=== PATIENT | male | born 1955 | race African-American/Black ===

== ENCOUNTER 2017-03-20 13:23 | Emergency (ER) | payer MEDICARE, MEDICAID ==
[~2017-03-20] VITALS: Ht 175.3 cm; Wt 93.8 kg
[~2017-03-20 13:23] MED LIST: ALLOPURINOL 100 MG; ANUHCCR RC; CLON-527 PO; CLONAZEPAM 1 MG TABLET; DIPH-423 PO; HYDR12.5 PO; LORA10TA65 PO; METH500T PO; QUET-1 PO; QUETIAPINE FUMARATE 300 MG TAB; TRADJENTA 5 MG; TRAZ-91 PO; TRAZODONE 100 MG TABLET
[2017-03-20 13:26] VITALS: BP 164/103
== END 2017-03-20 15:17 | disposition home or self-care (01) ==
LOC: ER 13:24
DX: M79.89 Other specified soft tissue disorders (principal); E78.00 Pure hypercholesterolemia, unspecified; I10 Essential (primary) hypertension; M10.9 Gout, unspecified
CPT/HCPCS: 99281

== ENCOUNTER 2017-11-10 08:55 | Emergency (ER) | payer MEDICARE, OTHER ==
[~2017-11-10] VITALS: Ht 175.3 cm; Wt 81.8 kg
[2017-11-10] MEDS ORDERED: PROCHC RC (09:19)
[2017-11-10 09:34] VITALS: BP 145/99
== END 2017-11-10 09:36 | disposition home or self-care (01) ==
LOC: ER 08:56
DX: K64.9 Unspecified hemorrhoids (principal); K59.00 Constipation, unspecified; E78.00 Pure hypercholesterolemia, unspecified; I10 Essential (primary) hypertension; Z90.49 Acquired absence of other specified parts of digestive tract; Z98.890 Other specified postprocedural states; Z79.899 Other long term (current) drug therapy
CPT/HCPCS: 99282

== ENCOUNTER 2018-12-14 21:48 | Emergency (ER) | payer MEDICARE ==
[~2018-12-14] VITALS: Ht 175.3 cm; Wt 75.0 kg
[~2018-12-14 21:48] MED LIST changes: +HYDR28CR14 TOP; +PROCHC RC; -QUETIAPINE FUMARATE 300 MG TAB; +QUETIAPINE FUMARATE 300 MG TAB PO
[2018-12-14 22:45] LABS: EOSINOPHILS # (AUTO) 0.1 X10'3 (0-0.9); MEAN CORPUSCULAR VOLUME 91.3 FL (78-98); MEAN PLATELET VOLUME 9.2 FL (7.4-10.4); PLATELET COUNT 153 X10'3 (140-440)
[2018-12-14 22:47] LABS: BASOPHILS % (AUTO) 0.1 % (0-1); HEMATOCRIT 28.7 % (42.0-52.0); HEMOGLOBIN 9.6 g/dl (14.0-17.9); LYMPHOCYTES # (AUTO) 1.7 X10'3 (1.1-4.8); LYMPHOCYTES % (AUTO) 23.4 % (21-51); MEAN CORPUSCULAR HEMOGLOBIN 30.4 PG (27.0-31.0); MEAN CORPUSCULAR HGB CONC 33.3 g/dL (33.0-36.5); MONOCYTES # (AUTO) 0.5 X10'3 (0-0.9); MONOCYTES % (AUTO) 6.5 % (2-12); NEUTROPHILS # (AUTO) 4.9 X10'3 (1.8-7.7); RED BLOOD COUNT 3.14 X10'6 (4.70-6.10); WHITE BLOOD COUNT 7.2 X10'3 (4.5-11.0)
[2018-12-14 22:53] LABS: OCCULT BLOOD STOOL NEGATIVE (Neg)
[2018-12-14 22:57] LABS: PARTIAL THROMBOPLASTIN TIME 30 SECONDS (22-32)
[2018-12-14 22:58] LABS: ALANINE AMINOTRANSFERASE 24 U/L (12-78); ALBUMIN 3.1 G/DL (3.4-5.0); ALKALINE PHOSPHATASE 68 IU/L (46-116); ANION GAP 7 (8-16); ASPARTATE AMINO TRANSFERASE 20 U/L (10-37); BILIRUBIN,TOTAL 0.5 MG/DL (0.1-1.0); BLOOD UREA NITROGEN 16 MG/DL (7-18); BUN/CREATININE RATIO 9.3 (5.4-32.0); CALCIUM 8.5 MG/DL (8.5-10.1); CHLORIDE 110 MMOL/L (99-107); CREATININE 1.72 MG/DL (0.60-1.10); GLUCOSE 90 MG/DL (70-104); POTASSIUM 3.5 MMOL/L (3.5-5.1); SODIUM 145 MMOL/L (135-145); TOTAL PROTEIN 6.3 G/DL (6.4-8.2); eGFR 49 ML/MIN
[2018-12-14 23:37] VITALS: BP 170/96
== END 2018-12-14 23:39 | disposition home or self-care (01) ==
LOC: ER 21:49
DX: K92.1 Melena (principal); E78.00 Pure hypercholesterolemia, unspecified; I10 Essential (primary) hypertension; M10.9 Gout, unspecified; Z98.890 Other specified postprocedural states; Z90.49 Acquired absence of other specified parts of digestive tract; Z79.899 Other long term (current) drug therapy
CPT/HCPCS: 36415; 80053; 82272; 85025; 85610; 85730; 86885; 86900; 86901; 99283

== ENCOUNTER 2018-12-23 21:41 | Inpatient (IN) | payer MEDICARE ==
[~2018-12-23] VITALS: Ht 175.3 cm; Wt 75.0 kg
--- NOTE | 2018-12-23 22:31 | NUR ---
DR VU AT BEDSIDE WITH PT
[2018-12-23 22:43] LABS: CLARITY,URINE CLEAR (Clear); COLOR,URINE YELLOW (Yellow); GLUCOSE, URINE NEGATIVE (Neg); KETONES,URINE NEGATIVE (Neg); LEUKOCYTE ESTERASE ,URINE TRACE (Neg); NITRITES, URINE NEGATIVE (Neg); OCCULT BLOOD,URINE NEGATIVE (Neg); PROTEIN,URINE NEGATIVE (Neg); UROBILINOGEN,URINE 0.2 E.U/dL (0.2-1.0)
[2018-12-23 22:50] LABS: UA COLLECTION TYPE CLN CATCH MIDSTREAM
[2018-12-23 22:51] LABS: BACTERIA,URINE NONE SEEN /HPF (Neg); RBC,URINE NONE SEEN /HPF (0-2); SQUAMOUS EPITHELIAL CELL,UR FEW /LPF (FEW); WBC,URINE 0-4 /HPF (0-4)
[2018-12-23 23:00] LABS: BASOPHILS % (AUTO) 0.3 % (0-1); EOSINOPHILS # (AUTO) 0.1 X10'3 (0-0.9); HEMATOCRIT 26.2 % (42.0-52.0); HEMOGLOBIN 8.7 g/dl (14.0-17.9); LYMPHOCYTES # (AUTO) 1.6 X10'3 (1.1-4.8); MEAN CORPUSCULAR HEMOGLOBIN 30.7 PG (27.0-31.0); MEAN CORPUSCULAR HGB CONC 33.3 g/dL (33.0-36.5); MEAN CORPUSCULAR VOLUME 92.4 FL (78-98); MEAN PLATELET VOLUME 9.7 FL (7.4-10.4); MONOCYTES # (AUTO) 0.3 X10'3 (0-0.9); MONOCYTES % (AUTO) 5.4 % (2-12); NEUTROPHILS # (AUTO) 3.9 X10'3 (1.8-7.7); NEUTROPHILS % (AUTO) 65.3 % (42-75); PLATELET COUNT 128 X10'3 (140-440); RED BLOOD COUNT 2.84 X10'6 (4.70-6.10); RED CELL DISTRIBUTION WIDTH 17.2 % (11.5-14.5)
[2018-12-23 23:18] LABS: CHLORIDE 108 MMOL/L (99-107); POTASSIUM 3.3 MMOL/L (3.5-5.1); SODIUM 144 MMOL/L (135-145); TROPONIN I 0.22 NG/ML (0.0-0.05)
[2018-12-23 23:49] LABS: ALANINE AMINOTRANSFERASE 38 U/L (12-78); ALKALINE PHOSPHATASE 63 IU/L (46-116); ANION GAP 7 (8-16); ASPARTATE AMINO TRANSFERASE 27 U/L (10-37); BILIRUBIN,TOTAL 0.4 MG/DL (0.1-1.0); BLOOD UREA NITROGEN 16 MG/DL (7-18); CALCIUM 8.1 MG/DL (8.5-10.1); CREATININE 1.77 MG/DL (0.60-1.10); GLUCOSE 95 MG/DL (70-104); TOTAL CARBON DIOXIDE 28.6 MMOL/L (24-32); TOTAL PROTEIN 5.9 G/DL (6.4-8.2); eGFR 47 ML/MIN
[2018-12-23] MEDS ORDERED: aspirin 81mg tab.chew PO ONE (23:55)
[2018-12-24] MEDS ORDERED: ATOR10TA70 PO (02:10)
[2018-12-24] MEDS ORDERED: VARD20TA31 PO (02:10)
[2018-12-24] MEDS ORDERED: normal saline 1000ml 1,000 ML IV SCH (02:36)
[2018-12-24] MEDS ORDERED: magnesium hydroxide 30ml (MOM) UD suspension PO PRN (02:40)
[2018-12-24] MEDS ORDERED: ondansetron/PF 4mg/2ml inj IV PRN (02:40)
[2018-12-24] MEDS ORDERED: metoprolol tartrate 50mg tablet PO ONE (02:40)
[2018-12-24] MEDS ORDERED: mag hydrox/Alum hydrox/simeth 30ml oral suspension PO PRN (02:40)
[2018-12-24] MEDS ORDERED: acetaminophen 325mg tablet PO PRN (02:40)
[2018-12-24] MEDS ORDERED: dextrose ORAL solution 15 GM/59 ML bottle PO PRN ×2 (02:45)
[2018-12-24] MEDS ORDERED: dextrose 50%-water 50ml dispensing syringe IV PRN ×2 (02:45)
[2018-12-24] MEDS ORDERED: glucagon, human recombinant 1mg kit SUBCUT PRN (02:45)
[2018-12-24] MEDS ORDERED: insulin Lispro (HumaLOG) vial - multi-dose SQ SCH (02:45)
[2018-12-24] MEDS ORDERED: MESSAGE TO PHARMACY PO ONE (02:45)
--- NOTE | 2018-12-24 07:55 | NUR ---
REQUESTED RE DRAW OF TROP. SPOKE TO SUSAN MATSON WE WILL KEEP PT IN ER UNTIL REDRAW TROP RESULTES. CALLED PCU SPOKE WITH BILLY DAVIS AND INFORMED HER WE WILL NOTIFY HOSPITALIST TO INQUIRE IF PT STILL MEETS ADMIT CRITERIA.
[2018-12-24] MEDS ORDERED: metoprolol tartrate 50mg tablet PO SCH (08:00)
[2018-12-24] MEDS ORDERED: atorvastatin 10mg tablet PO SCH (08:00)
[2018-12-24] MEDS ORDERED: heparin, porcine 5000 units/ml vial SQ SCH (08:00)
[2018-12-24] MEDS ORDERED: aspirin 325mg tablet PO SCH (08:30)
--- NOTE | 2018-12-24 09:12 | NUR ---
multiple pages to Dr Yousif RE: if pt needs admission. will attempt again
--- NOTE | 2018-12-24 09:38 | NUR ---
dr kim called back he will look over the cart and put in dc orders if apporp
[2018-12-24 10:25] VITALS: BP 132/82
[2018-12-24] MEDS ORDERED: LORA10TA7 PO (11:36)
[2018-12-24] MEDS ORDERED: TRAZ-251 PO (11:37)
[2018-12-24] MEDS ORDERED: FURO-150 PO (11:37)
[2018-12-24] MEDS ORDERED: ASPI81TA52 PO (11:37)
[2018-12-24] MEDS ORDERED: traZODone 50mg tablet PO SCH (21:00)
[2018-12-24] MEDS ORDERED: clonazePAM 1mg tablet PO SCH (21:00)
== END 2018-12-25 06:12 | disposition home or self-care (01) | DRG 280 ==
LOC: ER 21:44 → ED HOLD 12-24 02:39 → CMPBEDREQ 12-25 00:35
PROVIDERS: ADMIT Internal Medicine; ATTEND Hospitalist
DX: I13.0 Hypertensive heart and chronic kidney disease with heart failure and stage 1 through stage 4 chronic kidney disease, or unspecified chronic kidney disease (principal); I21.A1 Myocardial infarction type 2; I50.33 Acute on chronic diastolic (congestive) heart failure; E87.6 Hypokalemia; R42 Dizziness and giddiness; D64.9 Anemia, unspecified; E11.22 Type 2 diabetes mellitus with diabetic chronic kidney disease; E78.00 Pure hypercholesterolemia, unspecified; F32.9 Major depressive disorder, single episode, unspecified; R79.89 Other specified abnormal findings of blood chemistry; N18.9 Chronic kidney disease, unspecified; F20.9 Schizophrenia, unspecified; F41.9 Anxiety disorder, unspecified; M10.9 Gout, unspecified; N18.3 Chronic kidney disease, stage 3 (moderate); Z85.72 Personal history of non-Hodgkin lymphomas; Z90.49 Acquired absence of other specified parts of digestive tract
CPT/HCPCS: 36415; 71045; 80053; 81001; 82948; 83036; 83880; 84484; 85025; 85610; 87088; 93005; 93306; 99285; G0378; J1815

== ENCOUNTER 2019-02-28 14:11 | Emergency (ER) | payer MEDICARE, MEDICAID ==
[~2019-02-28] VITALS: Ht 175.3 cm; Wt 75.0 kg
[~2019-02-28 14:11] MED LIST changes: -ALLOPURINOL 100 MG; +ASPI81TA52 PO; +ATOR10TA70 PO; -CLON-527 PO; -CLONAZEPAM 1 MG TABLET; -DIPH-423 PO; +FURO-150 PO; -HYDR12.5 PO; -LORA10TA65 PO; +LORA10TA7 PO; -QUET-1 PO; -QUETIAPINE FUMARATE 300 MG TAB PO; -TRADJENTA 5 MG; +TRAZ-251 PO; -TRAZ-91 PO; -TRAZODONE 100 MG TABLET; +VARD20TA31 PO
[2019-02-28 14:32] VITALS: BP 138/73
[2019-02-28] MEDS ORDERED: ACET-812 PO (15:42)
== END 2019-02-28 15:54 | disposition home or self-care (01) ==
LOC: ER 14:13
DX: J02.8 Acute pharyngitis due to other specified organisms (principal); B97.89 Other viral agents as the cause of diseases classified elsewhere; E78.00 Pure hypercholesterolemia, unspecified; I10 Essential (primary) hypertension; E11.9 Type 2 diabetes mellitus without complications; F41.9 Anxiety disorder, unspecified; F20.9 Schizophrenia, unspecified; F32.9 Major depressive disorder, single episode, unspecified; Z90.49 Acquired absence of other specified parts of digestive tract; Z98.890 Other specified postprocedural states; Z59.0 Homelessness; Z79.82 Long term (current) use of aspirin; Z79.899 Other long term (current) drug therapy
CPT/HCPCS: 99282; 99283

== ENCOUNTER 2019-03-16 16:11 | Emergency (ER) | payer MEDICARE, MEDICAID ==
[~2019-03-16] VITALS: Ht 175.3 cm; Wt 75.0 kg
[2019-03-16 16:27] VITALS: BP 142/99
[2019-03-16] MEDS ORDERED: ACET-2006 PO (18:00)
== END 2019-03-16 18:06 | disposition home or self-care (01) ==
LOC: ER 16:11
DX: R20.0 Anesthesia of skin (principal); R05 Cough; J02.9 Acute pharyngitis, unspecified; E78.00 Pure hypercholesterolemia, unspecified; I10 Essential (primary) hypertension; E11.9 Type 2 diabetes mellitus without complications; F41.9 Anxiety disorder, unspecified; F32.9 Major depressive disorder, single episode, unspecified; F20.9 Schizophrenia, unspecified; Z90.49 Acquired absence of other specified parts of digestive tract; Z98.890 Other specified postprocedural states; Z59.0 Homelessness; Z79.899 Other long term (current) drug therapy
CPT/HCPCS: 99282

== ENCOUNTER 2020-01-27 08:07 | Emergency (ER) | payer MEDICARE, MEDICAID ==
[~2020-01-27] VITALS: Ht 175.3 cm; Wt 75.0 kg
[~2020-01-27 08:07] MED LIST changes: +ACET-2006 PO
[2020-01-27 09:50] VITALS: BP 151/52
== END 2020-01-27 09:51 | disposition home or self-care (01) ==
LOC: ER 08:08
DX: I10 Essential (primary) hypertension (principal); E78.00 Pure hypercholesterolemia, unspecified; E11.9 Type 2 diabetes mellitus without complications; M10.9 Gout, unspecified; F41.9 Anxiety disorder, unspecified; F32.9 Major depressive disorder, single episode, unspecified; F20.9 Schizophrenia, unspecified; Z90.89 Acquired absence of other organs; Z90.49 Acquired absence of other specified parts of digestive tract; Z98.890 Other specified postprocedural states; Z59.0 Homelessness; Z79.82 Long term (current) use of aspirin; Z79.899 Other long term (current) drug therapy
CPT/HCPCS: 99281

== ENCOUNTER 2020-02-14 23:58 | Emergency (ER) | payer MEDICARE, MEDICAID ==
[~2020-02-14] VITALS: Ht 175.3 cm; Wt 70.6 kg
--- NOTE | 2020-02-15 00:24 | NUR ---
Pt was d/c home from [facility] today and was told to f/u with a long term care administrator. Pt was sent home on a bus, and came immediately to the ER to f/u.
[2020-02-15 01:55] VITALS: BP 171/98
== END 2020-02-15 01:58 | disposition home or self-care (01) ==
LOC: ER 23:59
DX: I34.0 Nonrheumatic mitral (valve) insufficiency (principal); E78.00 Pure hypercholesterolemia, unspecified; I10 Essential (primary) hypertension; E11.9 Type 2 diabetes mellitus without complications; F31.9 Bipolar disorder, unspecified; F32.9 Major depressive disorder, single episode, unspecified; F20.9 Schizophrenia, unspecified; Z90.49 Acquired absence of other specified parts of digestive tract; Z59.0 Homelessness; Z79.899 Other long term (current) drug therapy
CPT/HCPCS: 99284

== ENCOUNTER 2020-04-04 01:37 | Emergency (ER) | payer MEDICARE, MEDICAID ==
[~2020-04-04] VITALS: Ht 175.3 cm; Wt 80.2 kg
[2020-04-04] MEDS ORDERED: AMLO5TAB4 PO (03:47)
[2020-04-04] MEDS: amLODIPine 5mg tablet PO ONE (03:53)
[2020-04-04 03:54] VITALS: BP 190/98
== END 2020-04-04 03:55 | disposition home or self-care (01) ==
LOC: ER 01:37
DX: I10 Essential (primary) hypertension (principal); E78.00 Pure hypercholesterolemia, unspecified; E11.9 Type 2 diabetes mellitus without complications; F41.9 Anxiety disorder, unspecified; F32.9 Major depressive disorder, single episode, unspecified; F20.9 Schizophrenia, unspecified; Z90.49 Acquired absence of other specified parts of digestive tract; Z98.890 Other specified postprocedural states; Z59.0 Homelessness; Z79.82 Long term (current) use of aspirin; Z79.899 Other long term (current) drug therapy
CPT/HCPCS: 93005; 99283

== ENCOUNTER 2020-05-31 10:13 | Emergency (ER) | payer MEDICARE, MEDICAID ==
[~2020-05-31] VITALS: Ht 175.3 cm; Wt 83.9 kg
[~2020-05-31 10:13] MED LIST changes: +AMLO5TAB4 PO
[2020-05-31 10:28] VITALS: BP 184/104
== END 2020-05-31 11:12 | disposition home or self-care (01) ==
LOC: ER 10:14
DX: S90.821A Blister (nonthermal), right foot, initial encounter (principal); E78.00 Pure hypercholesterolemia, unspecified; I10 Essential (primary) hypertension; E11.9 Type 2 diabetes mellitus without complications; F41.9 Anxiety disorder, unspecified; F32.9 Major depressive disorder, single episode, unspecified; F20.9 Schizophrenia, unspecified; M10.9 Gout, unspecified; Z90.49 Acquired absence of other specified parts of digestive tract; Z98.890 Other specified postprocedural states; Z59.0 Homelessness; Z79.82 Long term (current) use of aspirin; Z79.899 Other long term (current) drug therapy; X58.XXXA Exposure to other specified factors, initial encounter; Y93.89 Activity, other specified; Y92.89 Other specified places as the place of occurrence of the external cause; Y99.8 Other external cause status
CPT/HCPCS: 99281

== ENCOUNTER 2020-08-23 14:58 | Emergency (ER) | payer MEDICARE, MEDICAID ==
[~2020-08-23] VITALS: Ht 175.3 cm; Wt 81.8 kg
[~2020-08-23 14:58] MED LIST changes: -ACET-2006 PO; +ALLO100T25 PO; -AMLO5TAB4 PO; -ANUHCCR RC; -ASPI81TA52 PO; +CLON-568 PO; -FURO-150 PO; -HYDR28CR14 TOP; +LISI2.5T2 PO; +LOP25T PO; -LORA10TA7 PO; -METH500T PO; +NIFE90TA44 PO; -PROCHC RC; +QUET300T19 PO; -TRAZ-251 PO; +TRAZ-256 PO; -VARD20TA31 PO
[2020-08-23 15:29] VITALS: BP 113/71
[2020-08-23] MEDS ORDERED: CEPH-585 PO (15:34)
== END 2020-08-23 15:48 | disposition home or self-care (01) ==
LOC: ER 14:59
DX: L03.113 Cellulitis of right upper limb (principal); E86.0 Dehydration; M79.89 Other specified soft tissue disorders; E78.00 Pure hypercholesterolemia, unspecified; I10 Essential (primary) hypertension; E11.9 Type 2 diabetes mellitus without complications; M10.9 Gout, unspecified; F41.9 Anxiety disorder, unspecified; F32.9 Major depressive disorder, single episode, unspecified; F20.9 Schizophrenia, unspecified; Z90.89 Acquired absence of other organs; Z90.49 Acquired absence of other specified parts of digestive tract; Z98.890 Other specified postprocedural states; Z59.0 Homelessness; Z79.2 Long term (current) use of antibiotics; Z79.899 Other long term (current) drug therapy
CPT/HCPCS: 99283

== ENCOUNTER 2020-08-30 20:31 | Emergency (ER) | payer MEDICARE, MEDICAID ==
[~2020-08-30] VITALS: Ht 175.3 cm; Wt 82.7 kg
[~2020-08-30 20:31] MED LIST changes: +CEPH-585 PO
[2020-08-30] MEDS ORDERED: CEPH250T PO (22:05)
--- NOTE | 2020-08-30 22:18 | NUR ---
Zulma callaway in [facility] - 08/30/20 at 2223 by JONATHAN pt seen and discharge by provider.
[2020-08-30 22:21] VITALS: BP 176/116
== END 2020-08-30 22:48 | disposition home or self-care (01) ==
LOC: ER 20:32
DX: R60.0 Localized edema (principal); M79.601 Pain in right arm; E78.00 Pure hypercholesterolemia, unspecified; I10 Essential (primary) hypertension; E11.9 Type 2 diabetes mellitus without complications; F41.9 Anxiety disorder, unspecified; F32.9 Major depressive disorder, single episode, unspecified; F20.9 Schizophrenia, unspecified; I51.9 Heart disease, unspecified; Z59.0 Homelessness
CPT/HCPCS: 99283

== ENCOUNTER 2020-09-16 18:20 | Emergency (ER) | payer MEDICARE, MEDICAID ==
[~2020-09-16] VITALS: Ht 175.3 cm; Wt 79.5 kg
[2020-09-16] MEDS ORDERED: AMOX500C2 PO (19:18)
[2020-09-16 19:39] VITALS: BP 151/105
== END 2020-09-16 19:40 | disposition home or self-care (01) ==
LOC: ER 18:21
DX: J02.9 Acute pharyngitis, unspecified (principal); E78.00 Pure hypercholesterolemia, unspecified; I10 Essential (primary) hypertension; E11.9 Type 2 diabetes mellitus without complications; M81.0 Age-related osteoporosis without current pathological fracture; Z90.49 Acquired absence of other specified parts of digestive tract; Z98.890 Other specified postprocedural states; Z79.2 Long term (current) use of antibiotics; Z79.899 Other long term (current) drug therapy
CPT/HCPCS: 99283

== ENCOUNTER 2021-03-10 11:33 | Emergency (ER) | payer BC, MEDICAID ==
[~2021-03-10 11:33] MED LIST changes: +LISI2.5T14 PO; -LISI2.5T2 PO; -QUET300T19 PO; +QUET300T20 PO
== END 2021-03-10 15:13 | disposition left against medical advice (07) ==
LOC: ER 11:33
DX: Z53.21 Procedure and treatment not carried out due to patient leaving prior to being seen by health care provider (principal)

== ENCOUNTER 2021-03-10 19:27 | Emergency (ER) | payer BC, MEDICAID ==
--- NOTE | 2021-03-10 20:00 | NUR ---
not in lobby
--- NOTE | 2021-03-10 20:13 | NUR ---
not in lobby
== END 2021-03-10 21:35 | disposition left against medical advice (07) ==
LOC: ER 19:28
DX: Z53.21 Procedure and treatment not carried out due to patient leaving prior to being seen by health care provider (principal)

== ENCOUNTER 2022-11-13 13:08 | Inpatient (IN) | payer BC, MEDICAID ==
[~2022-11-13] VITALS: Ht 175.3 cm; Wt 84.1 kg
[~2022-11-13 13:08] MED LIST changes: -CEPH-585 PO; -NIFE90TA44 PO; +NIFE90TA70 PO
[2022-11-13 13:58] LABS: BASOPHILS % (AUTO) 0.4 % (0-1); EOSINOPHILS # (AUTO) 0.1 X10'3 (0-0.9); EOSINOPHILS % (AUTO) 2.1 % (0-6); HEMATOCRIT 34.2 % (42.0-52.0); HEMOGLOBIN 11.2 g/dl (14.0-17.9); LYMPHOCYTES # (AUTO) 1.4 X10'3 (1.1-4.8); LYMPHOCYTES % (AUTO) 22.1 % (21-51); MEAN CORPUSCULAR HEMOGLOBIN 29.9 PG (27.0-31.0); MEAN CORPUSCULAR HGB CONC 32.8 g/dL (33.0-36.5); MEAN CORPUSCULAR VOLUME 91.3 FL (78-98); MEAN PLATELET VOLUME 8.5 FL (7.4-10.4); MONOCYTES # (AUTO) 0.5 X10'3 (0-0.9); MONOCYTES % (AUTO) 8.5 % (2-12); NEUTROPHILS # (AUTO) 4.3 X10'3 (1.8-7.7); NEUTROPHILS % (AUTO) 66.9 % (42-75); PLATELET COUNT 233 X10'3 (140-440); RED BLOOD COUNT 3.75 X10'6 (4.70-6.10); RED CELL DISTRIBUTION WIDTH 16.1 % (11.5-14.5); WHITE BLOOD COUNT 6.4 X10'3 (4.5-11.0)
[2022-11-13 14:11] LABS: ALANINE AMINOTRANSFERASE 20 U/L (12-78); ALBUMIN 3.1 G/DL (3.4-5.0); ALBUMIN/GLOBULIN RATIO 0.9 (1.1-1.5); ALKALINE PHOSPHATASE 74 IU/L (46-116); ANION GAP 8 (8-16); ASPARTATE AMINO TRANSFERASE 24 U/L (10-37); BILIRUBIN,TOTAL 0.7 MG/DL (0.1-1.0); BLOOD UREA NITROGEN 29 MG/DL (7-18); BUN/CREATININE RATIO 9.7 (10.0-20.0); CALCIUM 8.6 MG/DL (8.5-10.1); CHLORIDE 102 MMOL/L (99-107); GLUCOSE 96 MG/DL (70-104); SODIUM 143 MMOL/L (135-145); TOTAL CARBON DIOXIDE 32.8 MMOL/L (24-32); TOTAL PROTEIN 6.6 G/DL (6.4-8.2); eCRCL 24 ML/MIN; eGFR 25 ML/MIN
[2022-11-13 14:19] LABS: PRO BRAIN NATRIURETIC PEPTIDE 314 PG/ML (0-125)
[2022-11-13] MEDS ORDERED: potassium Cl 20 mEq SR tablet PO ONE (14:45)
[2022-11-13] MEDS ORDERED: normal saline 1000ml 1,000 ML IV ONE (14:50)
[2022-11-13 15:36] LABS: CREATINE KINASE 277 U/L (39-308); MAGNESIUM 1.2 MG/DL (1.5-2.4)
[2022-11-13] MEDS ORDERED: magnesium 2GM in 50ml NS 50 ML IV ONE (16:15)
[2022-11-13] MEDS ORDERED: NIFE90TA70 PO (16:27)
[2022-11-13] MEDS ORDERED: TRAZ-251 PO (16:27)
[2022-11-13] MEDS ORDERED: DIPH25TA62 PO (16:29)
[2022-11-13] MEDS ORDERED: ATOR10TA70 PO (16:29)
[2022-11-13] MEDS ORDERED: ALLO100T PO (16:29)
[2022-11-13 16:52] LABS: ALBUMIN 3.2 G/DL (3.4-5.0); ANION GAP 8 (8-16); BLOOD UREA NITROGEN 29 MG/DL (7-18); BUN/CREATININE RATIO 9.8 (10.0-20.0); CALCIUM 8.6 MG/DL (8.5-10.1); CHLORIDE 103 MMOL/L (99-107); CREATININE 2.96 MG/DL (0.60-1.10); GLUCOSE 126 MG/DL (70-104); SODIUM 143 MMOL/L (135-145); THYROID STIMULATING HORMONE 1.68 ulU/ml (0.34-4.50); TOTAL CARBON DIOXIDE 32.4 MMOL/L (24-32); eCRCL 24 ML/MIN; eGFR 26 ML/MIN
[2022-11-13] MEDS ORDERED: magnesium 4gm in 100ml NS 100 ML IV PRN (16:55)
[2022-11-13] MEDS ORDERED: potassium Cl 40MEQ/1/2NS 520ml 520 ML IV PRN (16:55)
[2022-11-13] MEDS ORDERED: ondansetron/PF 4mg/2ml inj IV PRN (16:55)
[2022-11-13] MEDS ORDERED: magnesium 2GM in 50ml NS 50 ML IV PRN (16:55)
[2022-11-13] MEDS ORDERED: potassium Cl 20 mEq SR tablet PO PRN (16:55)
[2022-11-13] MEDS ORDERED: acetaminophen 325mg tablet PO PRN ×2 (16:55)
[2022-11-13] MEDS ORDERED: amLODIPine 5mg tablet PO ONE (17:15)
[2022-11-13] MEDS ORDERED: hyDRALAzine 10mg tablet PO PRN (17:15)
[2022-11-13] MEDS: normal saline 1000ml 1,000 ML IV SCH ×2 (17:20→23:10)
[2022-11-13] MEDS: potassium Cl 20 mEq SR tablet PO PRN ×2 (17:20→23:10)
[2022-11-13 19:07] LABS: BILIRUBIN,URINE NEGATIVE (Neg); CLARITY,URINE CLEAR (Clear); COLOR,URINE YELLOW (Yellow); GLUCOSE, URINE 250 mg/dl (Neg); KETONES,URINE NEGATIVE (Neg); LEUKOCYTE ESTERASE ,URINE NEGATIVE (Neg); NITRITES, URINE NEGATIVE (Neg); OCCULT BLOOD,URINE TRACE-INTACT (Neg); PROTEIN,URINE NEGATIVE (Neg); UROBILINOGEN,URINE 0.2 E.U/dL (0.2-1.0)
[2022-11-13 19:13] LABS: UA COLLECTION TYPE CLN CATCH MIDSTREAM
[2022-11-13 19:16] LABS: SQUAMOUS EPITHELIAL CELL,UR NONE SEEN /LPF (FEW)
[2022-11-13 19:17] LABS: BACTERIA,URINE FEW /HPF (Neg); RBC,URINE 0-2 /HPF (0-2); WBC,URINE NONE SEEN /HPF (0-4)
[2022-11-13] MEDS: enoxaparin 40mg/0.4ml syringe SQ SCH (20:12)
[2022-11-13] MEDS ORDERED: temazepam 15mg capsule PO PRN (21:00)
[2022-11-13 22:00] VITALS: BP 145/87; PULSE 88; RESP 20; RESP 21; TEMP 98.1; O2SAT 90; O2SAT 92
--- NOTE | 2022-11-13 22:20 | NUR ---
Patient in room ORTHO 4022. I have received report from MIRANDA York and had the opportunity to ask questions and assume patient care.
[2022-11-14] VITALS (7 sets, daily range): BP systolic 108–161; BP diastolic 66–91; PULSE 73–81; RESP 16–18; TEMP 97.5–98.2; O2SAT 94–100
--- NOTE | 2022-11-14 06:28 | NUR ---
Problems reprioritized. Patient report given, questions answered & plan of care reviewed with MIRANDA Abrams.
--- NOTE | 2022-11-14 06:29 | NUR ---
Patient in room ORTHO 4022. I have received report from Elma and had the opportunity to ask questions and assume patient care.
[2022-11-14 07:19] LABS: HEMATOCRIT 31.5 % (42.0-52.0); HEMOGLOBIN 10.5 g/dl (14.0-17.9); MEAN CORPUSCULAR HEMOGLOBIN 30.6 PG (27.0-31.0); MEAN CORPUSCULAR HGB CONC 33.4 g/dL (33.0-36.5); MEAN CORPUSCULAR VOLUME 91.4 FL (78-98); PLATELET COUNT 202 X10'3 (140-440); RED BLOOD COUNT 3.45 X10'6 (4.70-6.10); WHITE BLOOD COUNT 6.5 X10'3 (4.5-11.0)
[2022-11-14 07:20] LABS: BASOPHILS % (AUTO) 0.2 % (0-1); EOSINOPHILS # (AUTO) 0.2 X10'3 (0-0.9); EOSINOPHILS % (AUTO) 3.1 % (0-6); LYMPHOCYTES # (AUTO) 1.3 X10'3 (1.1-4.8); LYMPHOCYTES % (AUTO) 20.7 % (21-51); MEAN PLATELET VOLUME 9.1 FL (7.4-10.4); MONOCYTES # (AUTO) 0.5 X10'3 (0-0.9); MONOCYTES % (AUTO) 8.2 % (2-12); NEUTROPHILS # (AUTO) 4.4 X10'3 (1.8-7.7); NEUTROPHILS % (AUTO) 67.8 % (42-75)
[2022-11-14] MEDS: normal saline 1000ml 1,000 ML IV SCH ×3 (07:41→23:48)
[2022-11-14 07:56] LABS: ALANINE AMINOTRANSFERASE 20 U/L (12-78); ALBUMIN 2.9 G/DL (3.4-5.0); ALBUMIN/GLOBULIN RATIO 0.9 (1.1-1.5); ALKALINE PHOSPHATASE 67 IU/L (46-116); ANION GAP 8 (8-16); ASPARTATE AMINO TRANSFERASE 20 U/L (10-37); BILIRUBIN,TOTAL 0.5 MG/DL (0.1-1.0); BLOOD UREA NITROGEN 28 MG/DL (7-18); BUN/CREATININE RATIO 12.4 (10.0-20.0); CALCIUM 8.2 MG/DL (8.5-10.1); CHLORIDE 105 MMOL/L (99-107); CHOL/HDL RATIO 2.9 (0.00-4.99); CHOLESTEROL 157 MG/DL (0-200); CREATININE 2.26 MG/DL (0.60-1.10); GLUCOSE 118 MG/DL (70-104); HDL CHOLESTEROL 55 MG/DL (35-60); LDL CHOLESTEROL 74 MG/DL (50-100); POTASSIUM 3.3 MMOL/L (3.5-5.1); SODIUM 143 MMOL/L (135-145); TOTAL CARBON DIOXIDE 29.8 MMOL/L (24-32); TOTAL PROTEIN 6.3 G/DL (6.4-8.2); TRIGLYCERIDES 102 MG/DL (20-135); eCRCL 31 ML/MIN; eGFR 35 ML/MIN
[2022-11-14] MEDS: NIFEdipine XL 30mg tablet PO SCH (07:57)
[2022-11-14] MEDS: atorvastatin 10mg tablet PO SCH (07:58)
[2022-11-14] MEDS: potassium Cl 20 mEq SR tablet PO PRN ×3 (08:38→19:15)
[2022-11-14 08:50] LABS: HEMOGLOBIN A1C 6.1 % (4.5-6.2)
[2022-11-14 11:13] LABS: MAGNESIUM 1.4 MG/DL (1.5-2.4)
[2022-11-14] MEDS: magnesium Cl slow-release 64mg tablet PO PRN (14:14)
--- NOTE | 2022-11-14 18:04 | NUR ---
Problems reprioritized. Patient report given, questions answered & plan of care reviewed with Elma.
--- NOTE | 2022-11-14 18:20 | NUR ---
Patient in room ORTHO 4022. I have received report from MIRANDA Abrams and had the opportunity to ask questions and assume patient care.
[2022-11-14] MEDS: enoxaparin 40mg/0.4ml syringe SQ SCH (19:18)
[2022-11-15] MEDS: magnesium Cl slow-release 64mg tablet PO PRN (03:44)
[2022-11-15] MEDS: normal saline 1000ml 1,000 ML IV SCH ×2 (05:40→06:45)
[2022-11-15 05:51] LABS: BASOPHILS % (AUTO) 0.5 % (0-1); EOSINOPHILS # (AUTO) 0.2 X10'3 (0-0.9); EOSINOPHILS % (AUTO) 3.3 % (0-6); HEMATOCRIT 32.4 % (42.0-52.0); HEMOGLOBIN 10.7 g/dl (14.0-17.9); LYMPHOCYTES # (AUTO) 1.8 X10'3 (1.1-4.8); LYMPHOCYTES % (AUTO) 26.1 % (21-51); MEAN CORPUSCULAR HEMOGLOBIN 30.2 PG (27.0-31.0); MEAN CORPUSCULAR HGB CONC 32.9 g/dL (33.0-36.5); MEAN CORPUSCULAR VOLUME 91.7 FL (78-98); MEAN PLATELET VOLUME 9.4 FL (7.4-10.4); MONOCYTES # (AUTO) 0.6 X10'3 (0-0.9); MONOCYTES % (AUTO) 8.7 % (2-12); NEUTROPHILS # (AUTO) 4.2 X10'3 (1.8-7.7); NEUTROPHILS % (AUTO) 61.4 % (42-75); PLATELET COUNT 203 X10'3 (140-440); RED BLOOD COUNT 3.53 X10'6 (4.70-6.10); RED CELL DISTRIBUTION WIDTH 16.2 % (11.5-14.5); WHITE BLOOD COUNT 6.9 X10'3 (4.5-11.0)
[2022-11-15 06:28] LABS: ALANINE AMINOTRANSFERASE 23 U/L (12-78); ALBUMIN 2.8 G/DL (3.4-5.0); ALBUMIN/GLOBULIN RATIO 0.8 (1.1-1.5); ALKALINE PHOSPHATASE 62 IU/L (46-116); ANION GAP 4 (8-16); ASPARTATE AMINO TRANSFERASE 23 U/L (10-37); BILIRUBIN,TOTAL 0.4 MG/DL (0.1-1.0); BLOOD UREA NITROGEN 27 MG/DL (7-18); BUN/CREATININE RATIO 13.9 (10.0-20.0); CALCIUM 8.2 MG/DL (8.5-10.1); CHLORIDE 108 MMOL/L (99-107); CREATININE 1.94 MG/DL (0.60-1.10); GLUCOSE 92 MG/DL (70-104); SODIUM 143 MMOL/L (135-145); TOTAL CARBON DIOXIDE 31.1 MMOL/L (24-32); TOTAL PROTEIN 6.1 G/DL (6.4-8.2); eCRCL 36 ML/MIN; eGFR 42 ML/MIN
--- NOTE | 2022-11-15 06:30 | NUR ---
Problems reprioritized. Patient report given, questions answered & plan of care reviewed with MIRANDA Abrams.
[2022-11-15 07:02] VITALS: BP 154/92; PULSE 64; RESP 16; TEMP 98.5; O2SAT 95
[2022-11-15] MEDS: atorvastatin 10mg tablet PO SCH (07:31)
[2022-11-15] MEDS: NIFEdipine XL 30mg tablet PO SCH (07:31)
[2022-11-15 11:00] VITALS: BP 86/52; PULSE 81; RESP 17; TEMP 97.4; O2SAT 100
[2022-11-15] MEDS ORDERED: NIFE30TA2 PO (14:28)
--- NOTE | 2022-11-15 16:07 | NUR ---
Pt discharged via [facility] on . Pharmacy called to let them know he is on his way. Home meds given back from our pharmacy to patient. IV taken out. All belongings taken from room. [facility]. no tele.
== END 2022-11-15 15:57 | disposition home or self-care (01) | DRG 641 ==
LOC: ER 13:08 → ED HOLD 17:00 → EDBEDREQ 21:59 → ORTHO 4S 22:20
PROVIDERS: ADMIT Internal Medicine; ATTEND Internal Medicine
DX: E86.0 Dehydration (principal); N17.9 Acute kidney failure, unspecified; I95.1 Orthostatic hypotension; E11.22 Type 2 diabetes mellitus with diabetic chronic kidney disease; E78.00 Pure hypercholesterolemia, unspecified; E87.6 Hypokalemia; D64.9 Anemia, unspecified; F20.9 Schizophrenia, unspecified; I12.9 Hypertensive chronic kidney disease with stage 1 through stage 4 chronic kidney disease, or unspecified chronic kidney disease; F32.A Depression, unspecified; F41.9 Anxiety disorder, unspecified; M10.9 Gout, unspecified; G24.01 Drug induced subacute dyskinesia; I65.23 Occlusion and stenosis of bilateral carotid arteries; Z59.00 Homelessness unspecified; Z79.899 Other long term (current) drug therapy; Z85.72 Personal history of non-Hodgkin lymphomas; Z90.49 Acquired absence of other specified parts of digestive tract
CPT/HCPCS: 36415; 71045; 76770; 80048; 80053; 80061; 81001; 82550; 83036; 83605; 83735; 83874; 83880; 84443; 84484; 85025; 87040; 87081; 93005; 93880; 96361; 96374; 97161; 97530; 99285; A4615; G0378; J1650; J3475; J7030

== ENCOUNTER 2023-03-14 12:24 | Emergency (ER) | payer BC, MEDICAID ==
[~2023-03-14] VITALS: Ht 175.3 cm; Wt 81.8 kg
[~2023-03-14 12:24] MED LIST changes: +ALLO100T PO; -ALLO100T25 PO; -CLON-568 PO; +LIDO15SO3 PO; -LISI2.5T14 PO; -LOP25T PO; +NIFE30TA2 PO; -NIFE90TA70 PO; -QUET300T20 PO; +TRAZ-251 PO; -TRAZ-256 PO
[2023-03-14 12:40] VITALS: BP 152/92; PULSE 75; RESP 17; O2SAT 100
[2023-03-14] MEDS ORDERED: LIDOcaine Viscous 15ml cup MM PRN (12:45)
== END 2023-03-14 13:03 | disposition home or self-care (01) ==
LOC: ER 12:25
DX: J02.9 Acute pharyngitis, unspecified (principal); E78.00 Pure hypercholesterolemia, unspecified; I10 Essential (primary) hypertension; E11.9 Type 2 diabetes mellitus without complications; Z90.49 Acquired absence of other specified parts of digestive tract; Z79.899 Other long term (current) drug therapy
CPT/HCPCS: 99283

== ENCOUNTER 2023-03-20 16:53 | Emergency (ER) | payer BC, MEDICAID ==
[~2023-03-20] VITALS: Ht 175.3 cm; Wt 64.6 kg
[2023-03-20] MEDS ORDERED: ibuprofen 200mg tablet PO ONE (17:25)
[2023-03-20 17:56] LABS: STREP A SCREEN POSITIVE (Neg)
[2023-03-20] MEDS ORDERED: CEFD300C3 PO (18:50)
[2023-03-20 19:00] VITALS: BP 135/70; PULSE 105; RESP 18; TEMP 100.2; O2SAT 98
== END 2023-03-20 19:01 | disposition home or self-care (01) ==
LOC: ER 16:54
DX: J02.9 Acute pharyngitis, unspecified (principal); E78.00 Pure hypercholesterolemia, unspecified; I10 Essential (primary) hypertension; M10.9 Gout, unspecified; E11.9 Type 2 diabetes mellitus without complications; Z90.49 Acquired absence of other specified parts of digestive tract; Z59.00 Homelessness unspecified; Z79.899 Other long term (current) drug therapy
CPT/HCPCS: 87880; 99283